=== PATIENT | male | born 1990 | race Caucasian/White ===

== ENCOUNTER → 2025-04-19 | Outpatient (CLI) | payer OTHER ==
--- NOTE | 2025-04-19 12:16 | HMCIMG ---
CHEST 2VWS REASON: TROUBLE BREATHING COMPARISON: None FINDINGS: Two views of the chest were obtained. Lungs are clear. Heart size is normal. There is no pulmonary vascular congestion. Mediastinum and bony thorax appear unremarkable. IMPRESSION: Normal two view chest x-ray.
== END | disposition home or self-care (01) ==
LOC: RAH 11:29
PROVIDERS: ATTEND Chiropractor
DX: R06.02 Shortness of breath (principal)
CPT/HCPCS: 71046